=== PATIENT | male | born 1965 | race Caucasian/White ===

== ENCOUNTER 2023-05-13 21:14 | Observation (INO) | payer SELFPAY ==
[2023-05-13 21:14] VITALS: BP 144/80; PULSE 59; RESP 16; TEMP 36.7; O2SAT 98; BMI 20.9
--- NOTE | 2023-05-13 21:38 | XRR_ITS ---
PROCEDURE INFORMATION: Exam: XR Chest Exam date and time: 05/13/2023 9:52 PM Age: 57 years old Clinical indication: Chest pressure; Patient HX: C/O chest pain TECHNIQUE: Imaging protocol: Radiologic exam of the chest. Views: 1 view. COMPARISON: CT neck w con* [id number] 11/26/2018 8:32 AM FINDINGS: Lungs: There is patchy density in the lung bases with the right being greater than the left, this may represent atelectasis versus early infiltrates. Pleural spaces: Unremarkable. No pleural effusion. No pneumothorax. Heart/Mediastinum: Unremarkable. No cardiomegaly. Bones/joints: Patient is status post anterior cervical fusion. Intraperitoneal space: There is no free intraperitoneal air. XR/XR chest 1V portable [id number] IMPRESSION: Bibasal atelectasis versus early infiltrates with the right being more prominent than left.
--- NOTE | 2023-05-13 21:39 | ECG_ITS ---
[facility] Test Date: 2023-05-13 Pat Name: Tung West Department: Room: Gender: Male Reading Aide: : 1965 Requested By: Phil Novak Order Number: [id number] Winsome MD: Chuy Helton M.D. Measurements Intervals [place] Rate: 54 P: 68 MD: 151 QRS: 20 QRSD: 87 T: 56 QT: 431 QTc: 410 Interpretive Statements SINUS BRADYCARDIA MODERATE ST DEPRESSION [0.05+ mV ST DEPRESSION] No previous ECG available for comparison Electronically Signed On 05-14-2023 16:02:40 CDT by Chuy Helton M.D. [id number]
--- NOTE | 2023-05-13 21:39 | ED_ITS ---
HPI - Chest Pain General: Chief Complaint: Chest Pain Stated Complaint: cp Time Seen by Provider: 05/13/23 21:20 History of Present Illness: 57-year-old male presents the emergency department after onset of back pain that then went into his chest that then went into his jaw and then went into his right arm. He subsequently developed shortness of breath nausea and his states he was very pale. He had to lay down on the ground. This occurred about 45 minutes or an hour prior to arrival. He was given aspirin by EMS. He reports it starting to ease up. He admits that he has been having chest discomfort with exertion for the last few months. It is gotten to the point whe re his exertional tolerance is significantly decreased. He also reports a very strong family history of coronary artery disease including in his father who is at the bedside who has had a triple bypass. Patient admits to smoking. He does not know if he has high cholesterol. He does not typically have high blood pressure issues. 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 Patient denies any known coronary artery disease but has not been screened. Currently he still has pain in his back but the chest discomfort has improved. Associated symptoms: Deny abdominal pain, fever(s), syncope or vomiting Review of Systems General: Reports: 10 or more systems reviewed and unremarkable except in HPI and below Const: Denies: fever(s), chills or body aches Eyes: Denies: change in vision ENMT: Denies: throat pain Card: Denies: edema or syncope Resp: Denies: productive cough GI: Denies: abdominal pain, vomiting or diarrhea : Denies: flank pain, dysuria or urinary frequency Musc: Denies: extremity pain or extremity swelling Skin/Breast: Denies: rash or erythema Neuro: Denies: headache(s) or numbness in extremities Physical Exam Const: COMMON NORMALS: no limitations, alert and well nourished EXAM LIMITATIONS: no altered mental status HENMT: COMMON NORMALS: normocephalic, atraumatic and external ears normal HEAD & SCALP: normocephalic and atraumatic EXTERNAL EAR: Yes external ears normal MOUTH: no muffled voice Eye: COMMON NORMALS: EOMs intact bilaterally, conjunctivae normal and no scleral icterus CONJUNCTIVA: Yes conjunctivae normal Neck/C-Spine: COMMON NORMALS: no JVD GENERAL: Yes normal visual inspection and Yes trachea midline Resp: COMMON NORMALS: normal respiratory effort, No use of accessory muscles and clear to auscultation bilaterally AUSCULTATION: clear to auscultation bilaterally Cardio: COMMON NORMALS: no JVD, regular rate and regular rhythm RATE: regular rate RHYTHM: regular rhythm GI: COMMON NORMALS: non-tender PALPATION: No Guarding due to palpation present (GI) Extremity: COMMON NORMALS: normal to inspection Neuro: COMMON NORMALS: moves all extremities, no focal motor deficits and no sensory deficits noted SENSORIUM/ORIENTATION: Yes alert SPEECH: speech normal Psych: COMMON NORMALS: mental status grossly normal, Normal thought process present, cooperative, normal affect and speech normal SPEECH: Yes normal speech THOUGHT PROCESS: Normal thought process present Skin: COMMON NORMALS: no rashes or lesions noted, turgor normal and no jaundice GENERAL SKIN EXAM: no rashes or lesions noted and turgor normal Course Vital Signs: Vital signs: Vital Signs Temperature 98.1 F 05/13/23 21:14 Pulse Rate 60 05/13/23 22:12 Respiratory Rate 16 05/13/23 22:12 Blood Pressure 109/87 05/13/23 22:12 Pulse Oximetry 98 05/13/23 22:12 MDM - Chest Pain Medical Decision Making 57-year-old male smoker with incomplete tetraplegia who presents with an episode of back and chest pain in the setting of exertional dyspnea and chest discomfort increasing over the last several months. ddx: unstable angina or nstemi seem most likely. Low suspicion dissection, pe, gi pathology, msk etiology, gerd/pud, pneumonia, neuropathy. I reviewed the patient's EKG from the prehospital setting. There is J-point depression in the 3, V4, V5. V2 has a lot of artifact but I suspect there is some J-point elevation in V2 as well. No concerning ST segment elevations. EKG from 2138 here shows a sinus bradycardia, rate 54, normal axis, normal intervals, no J-point elevations, isolated mild J-point depression in V4. No hyperacute T waves. No ectopy. Chest x-ray on my interpretation shows a normal cardiomediastinal silhouette, no pneumothorax, no focal consolidations, atalectasis suspected right lower lung, suspected mild emphysematous pattern. I can see the cervical fusion hardware. WBC nl Hgb nl Cr nl Trop baseline normal Lytes nl HEART Score 6 (upper end of moderate risk for MACE) Discussed with Dr Bhatt for admission. Lab Data 05/13/23 20:40 05/13/23 20:40 Radiology Impressions Chest X-Ray 05/13/23 21:38 IMPRESSION: Bibasal atelectasis versus early infiltrates with the right being more prominent than left. Laboratory Results WBC 6.77 10^3/uL (3.29-11.43) 05/13/23 20:40 RBC 4.08 10^6/uL (3.85-5.65) 05/13/23 20:40 Hgb 12.50 g/dL (11.27-16.99) 05/13/23 20:40 Hct 37.7 % (37-53) 05/13/23 20:40 MCV 92.4 fl (82-101) 05/13/23 20:40 MCH 30.6 pg (27-33) 05/13/23 20:40 MCHC 33.2 g/dL (30-55) 05/13/23 20:40 RDW 13.5 % (12.1-15.1) 05/13/23 20:40 Plt Count 241 10^3/cmm (157-399) 05/13/23 20:40 MPV 10.7 fL (7.4-10.4) H 05/13/23 20:40 Neut % (Auto) 49.0 % 05/13/23 20:40 Lymph % (Auto) 39.9 % 05/13/23 20:40 [place] % (Auto) 6.9 % 05/13/23 20:40 Eos % (Auto) 3.4 % 05/13/23 20:40 Baso % (Auto) 0.7 % 05/13/23 20:40 Neut # (Auto) 3.31 10^3/uL (1.8-7.7) 05/13/23 20:40 Lymph # (Auto) 2.7 10^3/uL (0.8-4.8) 05/13/23 20:40 [place] # (Auto) 0.5 10^3/uL (0.2-0.9) 05/13/23 20:40 Eos # (Auto) 0.2 10^3/uL (0.0-0.8) 05/13/23 20:40 Baso # (Auto) 0.1 10^3/uL (0.0-0.1) 05/13/23 20:40 Nucleated RBC % (auto) 0 % 05/13/23 20:40 Nucleated RBCs # 0.0 /100WBC 05/13/23 20:40 PT 13.00 SECONDS (12.1-14.9) 05/13/23 20:40 INR 0.95 (0.8-1.2) 05/13/23 20:40 APTT 32.4 SECONDS (23.9-36.7) 05/13/23 20:40 Sodium 140 mmol/L (136-145) 05/13/23 20:40 Potassium 3.9 mmol/L (3.5-5.1) 05/13/23 20:40 Chloride 104 mmol/L (98-107) 05/13/23 20:40 Carbon Dioxide 27 mmol/L (22-29) 05/13/23 20:40 Anion Gap 12.9 (5-19) 05/13/23 20:40 BUN 21 mg/dL (6-20) H 05/13/23 20:40 Creatinine 1.0 mg/dL (0.7-1.2) 05/13/23 20:40 GFR Calculation 77.3 mL/min (90-130) L 05/13/23 20:40 Glucose 99 mg/dL (65-115) 05/13/23 20:40 Calculated Osmolality 293 mOsm/kg (285-295) 05/13/23 20:40 Calcium 8.9 mg/dL (8.5-10.5) 05/13/23 20:40 Total Bilirubin 0.2 mg/dL (0.15-1.2) 05/13/23 20:40 AST 10 U/L (0-40) 05/13/23 20:40 ALT 7 U/L (0-41) 05/13/23 20:40 Alkaline Phosphatase 97 U/L (40-130) 05/13/23 20:40 Troponin T Baseline 10 ng/L (0-15) 05/13/23 20:40 Total Protein 6.4 g/dL (6.6-8.7) L 05/13/23 20:40 Albumin 3.8 g/dL (3.5-5.2) 05/13/23 20:40 Globulin 2.6 g/dL (1.3-4.6) 05/13/23 20:40 Discharge Plan Discharge Patient Disposition: Placed in Observation Clinical Impression: Unstable angina pectoris, Chest pain Coding Level of Care Code ED Traffic Or System Dispatcher for Trey Cervantes
[2023-05-13] MEDS: nitroglycerin 1 gm/inch oint Pkt 1 INCH TOPICAL (21:43)
[2023-05-13 21:53] LABS: Basophils # 0.1 10^3/uL (0.0-0.1); Basophils % 0.7 %; Eosinophils # 0.2 10^3/uL (0.0-0.8); Eosinophils % 3.4 %; Hematocrit 37.7 % (37-53); Lymphocytes # 2.7 10^3/uL (0.8-4.8); Lymphocytes % 39.9 %; Mean Corpuscular HGB Conc 33.2 g/dL (30-55); Mean Corpuscular Hemoglobin 30.6 pg (27-33); Mean Corpuscular Volume 92.4 fl (82-101); Mean Platelet Volume 10.7 fL (7.4-10.4); Monocytes # 0.5 10^3/uL (0.2-0.9); Monocytes % 6.9 %; Neutrophils # 3.31 10^3/uL (1.8-7.7); Nucleated Red Blood Cells % 0 %; Platelet Count 241 10^3/cmm (157-399); Red Blood Count 4.08 10^6/uL (3.85-5.65); Red Cell Distribution Width 13.5 % (12.1-15.1); White Blood Count 6.77 10^3/uL (3.29-11.43)
[2023-05-13 22:00] LABS: INR 0.95 (0.8-1.2); Partial Thromboplastin Time 32.4 SECONDS (23.9-36.7)
[2023-05-13 22:07] LABS: Alanine Aminotransferase 7 U/L (0-41); Albumin Level 3.8 g/dL (3.5-5.2); Alkaline Phosphatase 97 U/L (40-130); Anion Gap 12.9 (5-19); Aspartate Amino Transferase 10 U/L (0-40); Blood Urea Nitrogen 21 mg/dL (6-20); Calcium 8.9 mg/dL (8.5-10.5); Carbon Dioxide 27 mmol/L (22-29); Chloride 104 mmol/L (98-107); Globulin 2.6 g/dL (1.3-4.6); Glomerular Filtration Rate 77.3 mL/min (90-130); Glucose 99 mg/dL (65-115); Osmolality Calculated 293 mOsm/kg (285-295); Potassium 3.9 mmol/L (3.5-5.1); Sodium 140 mmol/L (136-145); Total Bilirubin 0.2 mg/dL (0.15-1.2); Total Protein 6.4 g/dL (6.6-8.7)
[2023-05-13 22:12] VITALS: BP 109/87; PULSE 60; RESP 16; O2SAT 98
[2023-05-13 22:41] LABS: Troponin(5th) Baseline 10 ng/L (0-15)
[2023-05-13 23:14] LABS: Troponin 5 2HR 68.57 ng/L (0-15)
[2023-05-13 23:19] LABS: Troponin 5 2HR Delta 58.57 ABS# (0-10)
--- NOTE | 2023-05-13 23:21 | PM.HP ---
Providers/Chief Complaint Admitting Physician: Rosalinda Bhatt MD Primary Care Provider: ANTONIO Izquierdo Chief Complaint: cp History of Present Illness Tung West is a 57 year old male with history of incomplete tetraplegia, bladder and bowel dysfunction was brought in by EMS for complaint of chest discomfort 2 hours ago. As per the patient he was working with a mattress when he started feeling chest discomfort, locking of his right-sided jaw and right arm discomfort with associated nausea. He denies any prior symptoms no history of fever cold cough chest pain urinary or bowel complaints. He has a strong family history of CAD. His dad had CABG at the age of 65. He also reported to have occasional shortness of breath recently after walking few steps. He has a history of cervical spine injury 20 years ago leading to incomplete tetraplegia, but he is able to do his daily chores. He walks with a cane and drags his left leg when he gets tired. He admits taking Viagra for erectile dysfunction. He is asymptomatic since arrival in ER. He admits taking 1 dose of Viagra today evening Review of Systems Narrative: As per HPI Vitals/I&O/Wt Last Vital Signs Temp 98.1 F 05/13/23 21:14 Pulse 60 05/13/23 22:12 Resp 16 05/13/23 22:12 BP 109/87 05/13/23 22:12 Pulse Ox 98 05/13/23 22:12 Weight last 48 hrs Weight 58.967 kg Physical Exam Narrative: He is alert awake oriented x3 not in acute distress Chest clear to auscultation bilaterally Cardiovascular normal heart sounds regular rhythm Abdomen NAD Extremities no pedal edema noted Neurologically normal speech no sensory or motor deficits noted Data 05/13/23 20:40 05/13/23 20:40 CXR: Radiologist's impression: IMPRESSION: Bibasal atelectasis versus early infiltrates with the right being more prominent than left. ? EKG 1: My Interpretation: EKG by EMS showed normal sinus rhythm normal axis ,mild ST depressions in leads V3 to V6 EKG in ER showed normal sinus rhythm normal axis with resolved ST depressions. A&P Assessment and plan (1) NSTEMI (non-ST elevated myocardial infarction): 57-year-old male with history of cervical spine injury s/p incomplete tetraplegia presented with complaint of sudden chest discomfort associated with nausea and found to have ST depressions in initial EKG and positive troponins likely due to NSTEMI Plan Admit to CSU Will give aspirin 325 mg p.o. once Atorvastatin 40 mg p.o. once We will start heparin drip as per protocol Follow-up serial troponins Check 2D echo in a.m. Cardiology consult in a.m. Resume home medication except Viagra IV Pepcid 20 mg every 12 hours for stress ulcer prophylaxis Already on heparin, no need for further DVT prophylaxis. Attestations Medical Necessity Statement*: Patient presented with possible NSTEMI with initial EKG changes and positive troponins, needs further cardiac work-up for CAD. He might need admission for more than 2 days Time Spent in Patient Care: 35 minutes Coding Level of Care Code Acute Code for [facility] Fwd Diagnoses NSTEMI (non-ST elevated myocardial infarction) I21.4 Time Spent (min) 30
[2023-05-13] MEDS: clopidogrel 300 mg Tablet PO (23:31)
[2023-05-13] MEDS: aspirin 325 mg Tablet PO (23:32)
[2023-05-13 23:41] VITALS: BP 147/81; BP 164/72; PULSE 57; PULSE 64; RESP 16; TEMP 36.4; TEMP 36.7; O2SAT 97; O2SAT 98
[2023-05-14] VITALS (62 sets, daily range): BP systolic 96–164; BP diastolic 72–88; PULSE 48–73; RESP 11–25; TEMP 36.4–36.9; O2SAT 94–99
[2023-05-14] MEDS: heparin drip 25,000 UNIT/500 ML PREMIX 16.51 UNIT IV (00:12)
[2023-05-14] MEDS: atorvastatin 40 mg Tablet PO ×2 (00:14→20:48)
[2023-05-14] MEDS: famotidine 20 mg/2 mL INJ IVP ×2 (01:04→11:24)
[2023-05-14 02:44] LABS: Basophils % 0.5 %; Eosinophils # 0.2 10^3/uL (0.0-0.8); Eosinophils % 2.3 %; Hematocrit 36.3 % (37-53); Lymphocytes # 2.1 10^3/uL (0.8-4.8); Lymphocytes % 25.7 %; Mean Corpuscular HGB Conc 33.6 g/dL (30-55); Mean Corpuscular Hemoglobin 31.2 pg (27-33); Mean Corpuscular Volume 92.8 fl (82-101); Mean Platelet Volume 10.2 fL (7.4-10.4); Monocytes # 0.3 10^3/uL (0.2-0.9); Monocytes % 3.8 %; Neutrophils # 5.55 10^3/uL (1.8-7.7); Neutrophils % 67.6 %; Nucleated Red Blood Cells % 0 %; Platelet Count 219 10^3/cmm (157-399); Red Blood Count 3.91 10^6/uL (3.85-5.65); Red Cell Distribution Width 13.4 % (12.1-15.1); White Blood Count 8.21 10^3/uL (3.29-11.43)
[2023-05-14 03:01] LABS: Alanine Aminotransferase 7 U/L (0-41); Albumin Level 3.4 g/dL (3.5-5.2); Alkaline Phosphatase 79 U/L (40-130); Anion Gap 10.8 (5-19); Aspartate Amino Transferase 15 U/L (0-40); Blood Urea Nitrogen 18 mg/dL (6-20); Calcium 8.3 mg/dL (8.5-10.5); Carbon Dioxide 25 mmol/L (22-29); Chloride 109 mmol/L (98-107); Globulin 2.6 g/dL (1.3-4.6); Glomerular Filtration Rate 87.3 mL/min (90-130); Glucose 105 mg/dL (65-115); Magnesium 2.1 mg/dL (1.7-2.3); Osmolality Calculated 294 mOsm/kg (285-295); Potassium 3.8 mmol/L (3.5-5.1); Sodium 141 mmol/L (136-145); Total Bilirubin 0.3 mg/dL (0.15-1.2)
[2023-05-14 03:06] LABS: Troponin 5 6HR 449.8 ng/L (0-15); Troponin 5 6HR Delta 439.8 ng/L (0-12)
[2023-05-14 03:13] LABS: NT Pro B Type Natriuretic Pept 453 pg/mL (0-125)
--- NOTE | 2023-05-14 03:32 | PC.NURSE ---
Critical lab 6 hour troponin was called to floor. Dr. Bhatt was notified by WINTER Castellano and orders were received for patient to be transferred to ICU. Report was called to JEANINE Burnett. Patient and were notified and transferred down to ICU via bed with all belongings.
--- NOTE | 2023-05-14 03:38 | ECG_ITS ---
[facility] Test Date: 2023-05-14 Pat Name: Tung West Department: Room: 250 Gender: Male Assisted Living Manager: : 1965 Requested By: Phil Novak Order Number: [id number] Winsome MD: Chuy Helton M.D. Measurements Intervals [place] Rate: 57 P: -13 ND: 151 QRS: 34 QRSD: 86 T: -12 QT: 443 QTc: 432 Interpretive Statements SINUS BRADYCARDIA Compared to ECG 05/13/2023 21:39:56 ST (T wave) deviation no longer present Electronically Signed On 05-14-2023 16:04:12 CDT by Chuy Helton M.D. [id number]
--- NOTE | 2023-05-14 03:44 | PC.NURSE ---
Arrival to ICU: Pt arrived from [place] to ICU 2 @0324. Continuos Cardiac monitoring continued. Pt is A&Ox4, reporting 1/10 chest pain. Educated pt on signs and symptoms to report to the nurse, pt verbalized understanding.
[2023-05-14 06:57] LABS: Partial Thromboplastin Time 48.5 SECONDS (23.9-36.7)
--- NOTE | 2023-05-14 08:12 | USCV_ITS ---
Tung West Age: 57 Gender: M : 1965 Exam Date: 05/14/2023 09:37 Ordering Phys: Nirav De La Garza MD Technologist: Vikas Logan [place] [facility] [place]ication: nstemi BP: 131 / 86 HR: 60 Rhythm: Sinus Technical Quality: Adequate MEASUREMENTS (Male / Female) Normal Values 2D ECHO LV Diastolic Diameter PLAX 4.5 cm 4.2 - 5.9 / 3.9 - 5.3 cm LV Systolic Diameter PLAX 3.2 cm IVS Diastolic Thickness 1.0 cm 0.6 - 1.0 / 0.6 - 0.9 cm IVS Systolic Thickness 1.7 cm LVPW Diastolic Thickness 1.1 cm 0.6 - 1.0 / 0.6 - 0.9 cm LVPW Systolic Thickness 1.4 cm LVOT Diameter 2.1 cm LV Ejection Fraction 2D Teich 55.9 % LA Diameter 3.4 cm LA Width 3.4 cm IVC Diameter 1.7 cm M-MODE Aortic Annulus Diameter 4.0 cm LA Ao Ratio MM 1.0 MV E Point Septal Separation 2.7 cm DOPPLER AV Peak Velocity 116.0 cm/s LVOT Peak Velocity 77.0 cm/s AV Area Cont Eq vti 2.5 cm squared AV Area Cont Eq pk 2.4 cm squared MV Area PHT 3.9 cm squared Mitral E to A Ratio 1.4 MV E' Velocity 41.0 cm/s Mitral E to MV E' Ratio 7.1 Mitral E to LV E' Lateral Ratio 6.5 Mitral E to LV E' Septal Ratio 7.9 TR Peak Velocity 191.0 cm/s TR Peak Gradient 14.6 mmHg TV Peak E Velocity 83.0 cm/s Right Atrial Pressure 3.0 mmHg Pulmonary Artery Systolic Pressu 17.6 mmHg RV Acceleration Time 0.2 s FINDINGS Left Ventricle Left ventricle is normal. LV systolic function is normal with EF of 55-60%. No regional wall motion abnormalities. Right Ventricle Normal in size and function Right Atrium Normal in size Left Atrium Normal in size Mitral Valve Structurally normal mitral valve. Mild to moderate mitral regurgitation. Aortic Valve Structurally normal aortic valve. No significant stenosis or regurgitation. Tricuspid Valve Mild tricuspid regurgitation. Pulmonary artery systolic pressure is normal Pulmonic Valve Not well visualized Pericardium Normal Aorta Normal in size IVC Appears to be normal CONCLUSIONS LV systolic function is normal with EF of 55-60% Mild to moderate mitral regurgitation Mild tricuspid regurgitation No comparison studies are available. Abhay Vu MD (Electronically Signed) Final Date: 14 May 2023 11:57 S
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
[2023-05-14] MEDS: aspirin 81 mg EC Tablet PO (09:57)
[2023-05-14] MEDS: sodium chloride 0.9% 1,000 ML 50 ML IV (11:24)
--- NOTE | 2023-05-14 15:00 | XACV_ITS ---
Exam Room: [facility] Ht: 168 cm Wt: 59 kg BSA: 1.66 m2 Gender: Male : 1965 Any Known Allergies: Other Exam Priority: Routine Procedure(s): Procedure Description: Diagnostic procedure Procedure Description: Left Heart Catheterization Procedure Description: Left ventriculography Procedure Description: Coronary Angiography Danie JEFFREY; Diagnostic Cath Status: Urgent Diagnostic Findings * Patient arrived with chest pain, jaw pain, shortness of breath, diaphoresis with elevated troponin. Angiography recommended. Performed from the right radial artery. * Angiography reveals right coronary artery dominance. The left main coronary artery is normal bifurcates into the left anterior descending and circumflex. Circumflex provides some collateral flow to the distal right coronary artery as does the septal branch of the LAD. The circumflex is a relatively large vessel and there are 2 marginal branches. The first is a large marginal branch with a 30 to 40% stenosis in the proximal portion. Otherwise the vessel has diffuse luminal irregularities. There is a large left atrial recurrent branch. The left anterior descending contains mild diffuse luminal irregularities in the proximal to midportion. Otherwise the vessel is relatively free of disease. There is a tiny ramus intermedius artery. The right coronary artery is essentially occluded just past the acute margin. There are some bridging collaterals which fill the distal vessel to some degree.. PCI Status: Elective PCI LVEF Assessed: Yes Interventional Findings * Because the artery is so large I decided to see if I could place a wire. Guide positioning was very difficult. Once advancing the wire and then putting a balloon over the wire it became clear very quickly that this is a chronic total occlusion which is lengthy. I could not pass the wire through the vessel so I stopped. There is adequate collateral flow. Decision for PCI with Surgical Consult: No PCI for Multi-vessel Disease: No Conclusions 1. Minor disease of the LAD and circumflex with normal left main. Occluded distal right coronary artery with good collateral flow from the left system. Recommendations * Aspirin and antianginals. The patient has a spinal cord injury and so uses Viagra regularly. He would like to avoid the use of the long-acting nitrate.. Therefore, I started him on Ranexa to see if we can achieve an antianginal effect. If that does not work I would switch over to a dihydropyridine calcium channel razia before committing him to a long-acting nitrate. Interventional RX Recommendation: medical therapy and/or counseling Diagnostic RX Recommendation: medical therapy and/or counseling Anticoagulation: Heparin Ventriculography Ejection Fraction: 60.0 % Pressures Phase:Rest AO : 130 / 75 ( 96 ) @ 3:33:00 PM 110 / 78 ( 94 ) @ 3:35:00 PM 151 / 82 ( 109 ) @ 3:43:00 PM 151 / 82 ( 109 ) @ 3:43:00 PM 129 / 85 ( 105 ) @ 4:00:00 PM LV : 163 / 5 / 26 @ 3:39:00 PM 158 / 6 / 26 @ 3:40:00 PM 162 / 6 / 26 @ 3:43:00 PM Valves Phase:DefaultPhase AV : 12.0 @ 3:12:03 PM AV Mean Gradient: 12.0 @ 3:12:03 PM 12.0 @ 3:12:03 PM Clinical Evaluation EBL: 5mL-10mL Procedural Details Procedure Consent Obtained. Current Diagnosis : NSTEMI. Pre-Procedure Time Out. Identified patient by full name and date of as verbalized by the patient/guarantor. Does the consent match the physician's order: Yes. Accurate & Complete Informed Consent: Yes. Inpatient/Outpatient History & Physical on Chart: Yes. If H&P is completed, is and addenduem needed: No; If yes, is the addendum complete: N/A. Visualize and Verify Site with Patient/Guarantor: N/A. Relevant Radiology Images available: Yes. Pre-op teaching completed and patient verbalized understanding. The risks, benefits, and alternatives of sedation and/or procedure were discussed by physician. The patient agrees to continue. Procedure started. [facility] Clinical Fraility Score: 3: Managing Well. Gis Specialist Indications: ACS > 24 hours. Chest Pain Symptom Assessment: Typical Angina Symptoms. Correct patient, site and procedure confirmed by cath team. Current diagnosis: NSTEMI. PERRLA. Strong, equal hand editor school photograph bilaterally. Lungs clear x 5 lobes. IV Site on Arrival: 18 gauge in the right forearm. IV Fluids: 0.9% NaCl at KVO. 100 mL infused prior to quality assurance/r&d lab technician. Oxygen started at 2liters/min via nasal canula. right groin was prepped with chloroprep then draped in the usual sterile fashion. right radial was prepped with chloroprep then draped in the usual sterile fashion. IV Site on Arrival: 18 gauge in the left anticubital. Pre Procedural Pulses: bilateral radial was 3+. Physician notified. Baseline sample Acquired. HR: 46 BPM. Physician arrived. Physician scrubbed in. Immediate Pre-Procedure Time Out. Correct Patient: Yes; Correct Procedure: Yes; Correct Site: Yes; Correct Patient Position: Yes; Correct Supplies: Yes; Dried Flammable Prep: Yes; Blood Products Available: N/A;. Lidocaine 1% infiltrated to the right radial. Arterial access obtained. A 5 latvian Khanh catheter in over wire. Multiple views taken of right coronary artery. Catheter redirected to the LCA. Multiple views taken of left coronary artery. Catheter removed over the exchange wire. A 5 latvian Angled Pig catheter in over wire. EDP Sample taken: LV 163/5,26; HR: 55 BPM; SpO2: 98%. LV gram performed in LITTLE @ 10 mL/second for a total of 30 mL. EDP Sample taken: LV 158/6,26; HR: 61 BPM; SpO2: 99%. Physician review of cine films. Pullback taken: LV 162/6,26; AO 151/82(109); Mean: 12mmHg, Peak to Peak: 12mmHg, SEP: 19sec/min; HR: 50 BPM; SpO2: 99%. Catheter removed over the exchange wire. Sheath upsized to a 6 Fr. 6 latvian JR 4 guide catheter was inserted over the wire. Guide catheter out. 6 latvian AL I guide catheter was inserted over the wire. Guide catheter out. 6 latvian AR 1 guide catheter was inserted over the wire. [place] guidewire was advanced through the guide catheter to lesion in the mid RCA. 2.5x30 Trek balloon inserted to lesion in the distal RCA. Balloon and wire out. Guide catheter out. A TR Band was successful obtaining hemostatsis at the Right Radial artery insertion site. Post Procedure: Pulses reassessed and unchanged. PERRLA. Strong, equal hand editor school photograph bilaterally. No VTE prophylaxis required. Medication's Wasted: Lidocaine 1% = 3 mL. Medication's Wasted: Nitro = 49.8 mcg. Medication's Wasted: Heparin = 1000 units. Medication's Wasted: Other = Fentanyl 25mcg Versed 1 mg. Total IV fluids: 73 mL. Complications: None. Estimated blood loss: 5mL-10mL. Responsiveness - Normal response to verbal stimuli; alert and oriented, PERRLA. Circulation: W/N/L, pulses unchanged. Nausea/Vomiting: No. Procedure completed. Vital chart was stopped. Patient transferred by bed to ICU. Access Site Site: Right Radial artery Sheath Size: 5 Fr Hemostasis Method: TR Band Hemostasis Success: Successful Procedure Medications Start: 2:22 PM Stop: 2:22 PM Medication: Versed Amount: 1 mg Route: I.V. Start: 2:22 PM Stop: 2:22 PM Medication: Fentanyl Amount: 50 mcg Route: I.V. Start: 2:29 PM Stop: 2:29 PM Medication: Nitrogylcerin Amount: 200 mcg Route: I.A. Start: 2:34 PM Stop: 2:34 PM Medication: Versed Amount: 1 mg Route: I.V. Start: 2:48 PM Stop: 2:48 PM Medication: Versed Amount: 1 mg Route: I.V. Start: 2:48 PM Stop: 2:48 PM Medication: Fentanyl Amount: 25 mcg Route: I.V. I, the attending physician, have reviewed and verified all procedure medications. Yes, all medications given per verbal order History/Risk Factors Hypertension: No Dyslipidemia: No Peripheral Arterial Disease (PAD): No Myocardial Infarction ([place]): No Obesity: No Renal Disease: No Tobacco Use: Current/Recent(w/in 1 year) Prior Interventions PCI: No CABG: No Valve Surgery: No Report Signatures Finalized by Dr. Chuy Helton MD on 05/14/2023 03:37 PM
--- NOTE | 2023-05-14 15:33 | PM.PN ---
Subjective Subjective: Patient was seen this morning, he does report smoking, does have a family history of CAD in his father, currently denies any chest pain, no prior history of chest pain Vitals/I&O/Wt Last Vital Signs Temp 98.2 F 05/14/23 08:15 Pulse 61 05/14/23 13:45 Resp 15 05/14/23 13:45 BP 127/79 05/14/23 14:00 Pulse Ox 96 05/14/23 13:45 O2 Del Method Room Air 05/14/23 08:15 05/14/23 05/14/23 05/14/23 06:59 14:59 22:59 Intake Total 56.134 / 56.134 176.067 / 176.067 Output Total 100 / 100 Balance -43.866 / -43.866 176.067 / 176.067 Weight last 48 hrs Weight 59.375 kg Weight 58.967 kg Physical Exam Const: COMMON NORMALS: no acute distress and patient oriented x3 Resp: COMMON NORMALS: normal respiratory effort, No retractions, No use of accessory muscles and clear to auscultation bilaterally AUSCULTATION: clear to auscultation bilaterally Cardio: COMMON NORMALS: regular rate, regular rhythm, S1 normal heart sound present and S2 normal heart sound present RATE: regular rate RHYTHM: regular rhythm HEART SOUNDS: S1 normal heart sound present and S2 normal heart sound present GI: COMMON NORMALS: Normal to inspection, nondistended, normoactive bowel sounds present and non-tender Extremity: COMMON NORMALS: no pedal edema Neuro: COMMON NORMALS: patient oriented x3 Psych: COMMON NORMALS: mental status grossly normal Data 05/14/23 02:34 05/14/23 02:34 A&P Assessment and plan (1) NSTEMI (non-ST elevated myocardial infarction): 57-year-old male with history of cervical spine injury s/p incomplete tetraplegia presented with complaint of sudden chest discomfort associated with nausea and found to have ST depressions in initial EKG and positive troponins likely due to NSTEMI (2) Chest pain: (3) Smoker: Smoking cessation counseling Plan Currently in ICU, CSU overflow Aspirin 81 mg once daily Atorvastatin 40 mg once daily Continue heparin drip 6-hour troponin 449.8, delta of 439 Cardiac echo CONCLUSIONS ?LV systolic function is normal with EF of 55-60% ?Mild to moderate mitral regurgitation ?Mild tricuspid regurgitation ?No comparison studies are available. Cardiology consulted Resume home medication except Viagra IV Pepcid 20 mg every 12 hours for stress ulcer prophylaxis Already on heparin, no need for further DVT prophylaxis. Attestations Medical Necessity Statement*: Patient requires hospitalization for chest pain, NSTEMI, Diagnoses NSTEMI (non-ST elevated myocardial infarction) I21.4 Chest pain R07.9 Smoker F17.200
[2023-05-14] MEDS: baclofen 10 mg Tablet PO (17:15)
[2023-05-14] MEDS: ranolazine (12HR) 500 mg Tablet PO (17:15)
[2023-05-14] MEDS: sodium chloride 0.9% 1,000 ML 100 ML IV (17:16)
--- NOTE | 2023-05-14 18:54 | PC.NURSE ---
Transfer Note Patient transferred to CSU 103 from ICU via wheelchair. Handoff report given to JEANINE Torres. Patient oriented to environment and equipment. Covering service notified. Orders reviewed and will continue to monitor. Family notified. Upon transfer patient is alert/oriented x4 on room air. IVF infusing per order please see MAR for infusion rate. All belongings transferred with patient and placed at bedside.
[2023-05-15] MEDS: famotidine 20 mg/2 mL INJ IVP (00:50)
[2023-05-15] MEDS: sodium chloride 0.9% 1,000 ML 100 ML IV (03:24)
[2023-05-15 03:48] LABS: Basophils % 0.6 %; Eosinophils # 0.2 10^3/uL (0.0-0.8); Eosinophils % 2.5 %; Hematocrit 37.5 % (37-53); Lymphocytes # 2.1 10^3/uL (0.8-4.8); Lymphocytes % 28.2 %; Mean Corpuscular HGB Conc 32.5 g/dL (30-55); Mean Corpuscular Hemoglobin 30.4 pg (27-33); Mean Corpuscular Volume 93.5 fl (82-101); Mean Platelet Volume 10.4 fL (7.4-10.4); Monocytes # 0.5 10^3/uL (0.2-0.9); Monocytes % 6.3 %; Neutrophils # 4.52 10^3/uL (1.8-7.7); Neutrophils % 62.3 %; Nucleated Red Blood Cells % 0 %; Platelet Count 209 10^3/cmm (157-399); Red Blood Count 4.01 10^6/uL (3.85-5.65); Red Cell Distribution Width 13.5 % (12.1-15.1); White Blood Count 7.26 10^3/uL (3.29-11.43)
[2023-05-15 03:59] VITALS: BP 119/72; PULSE 57; RESP 16; TEMP 36.6; O2SAT 95
[2023-05-15 04:08] LABS: Anion Gap 10.1 (5-19); Blood Urea Nitrogen 14 mg/dL (6-20); Calcium 8.3 mg/dL (8.5-10.5); Carbon Dioxide 26 mmol/L (22-29); Chloride 110 mmol/L (98-107); Glomerular Filtration Rate 87.3 mL/min (90-130); Glucose 97 mg/dL (65-115); Osmolality Calculated 294 mOsm/kg (285-295); Potassium 4.1 mmol/L (3.5-5.1); Sodium 142 mmol/L (136-145)
[2023-05-15 05:22] VITALS: PULSE 47
[2023-05-15 07:31] VITALS: BP 145/84; PULSE 53; RESP 16; TEMP 36.9; O2SAT 97
[2023-05-15] MEDS: aspirin 81 mg EC Tablet PO (08:33)
[2023-05-15] MEDS: ranolazine (12HR) 500 mg Tablet PO (08:33)
[2023-05-15] MEDS: baclofen 10 mg Tablet PO (08:33)
--- NOTE | 2023-05-15 09:39 | P.PN_ITS ---
Subjective Subjective: Tung had coronary angiography yesterday. The distal right coronary artery is a chronic total occlusion with good collateral flow from the left system. There were no other significant lesions, thus he did not require any intervention. Initially, I had considered using long-acting nitrate for control of his angina, however after talking to his uses Viagra to help with his bowel and bladder control among other things. After considering the options I think it is best not to add long-acting nitrate but to consider Ranexa for angina control so that he can still use the Viagra for his other needs. Vitals/I&O/Wt Last Vital Signs Temp 98.5 F 05/15/23 07:31 Pulse 53 L 05/15/23 07:31 Resp 16 05/15/23 07:31 BP 145/84 05/15/23 07:31 Pulse Ox 97 05/15/23 07:31 O2 Del Method Room Air 05/15/23 07:31 05/14/23 05/15/23 05/15/23 22:59 06:59 14:59 Intake Total 1440 / 7231.050 9293 / 2816.067 480 / 480 Output Total 920 / 920 600 / 600 Balance 1440 / 1616.067 280 / 1896.067 -120 / -120 Weight last 48 hrs Weight 130 lb 14.4 oz Weight 130 lb Physical Exam Narrative: GENERAL: In general he looks and feels well HEENT: Exam within normal limits. NECK: Supple without jugular vein distention. The carotid upstroke is normal without bruits. BACK: Exam normal. LUNGS: Clear. HEART: Regular rate and rhythm. ABDOMEN: Benign without organomegaly or tenderness. EXTREMITIES: No edema. Right radial artery site is flat, dry without bleeding or hematoma. NEUROLOGIC: Exam normal. SKIN: Unremarkable. Data 05/15/23 03:20 05/15/23 03:20 A&P Assessment and plan (1) Smoker: (2) Chest pain: (3) Elevated troponin: Plan He may be discharged today. I would continue his home medications and add low- dose aspirin p.o. Ranexa 500 mg twice a day. No beta-razia secondary to bradycardia. Follow-up in 7 to 10 days with the nurse practitioner in one of the dross skimmer in about 3 months. Attestations Medical Necessity Statement*: Should be able to go home today. and Moderate Time for a total of 30 minutes, includes reviewing past or interval history, examining/interviewing patient, counseling patient/family/other support, updating patient/family/other support, discussing plan of care with staff, communicating with other healthcare providers and documenting encounter Diagnoses Smoker F17.200 Chest pain R07.9 Elevated troponin R77.8
[2023-05-15] MEDS: enoxaparin 40 mg/0.4 mL Syringe SUBCUT (09:51)
--- NOTE | 2023-05-15 10:44 | PM.DCS ---
Discharge Providers Date of Admission: 05/13/23 23:03 Date of Discharge: May 15, 2023 Attending Provider at Admission: Rosalinda Bhatt MD Attending Provider at Discharge: Nirav De La Garza MD Primary Care Provider: ANTONIO Izquierdo Diagnoses at Discharge Discharge Diagnosis (1) Smoker: Status: Acute (2) Chest pain: Status: Acute (3) Elevated troponin: Status: Acute Reason for Visit Reason for Visit: cp Hospital Course Hospital Course Tung West is a 57 year old male with history of incomplete tetraplegia, bladder and bowel dysfunction was brought in by EMS for complaint of chest discomfort 2 hours ago.? As per the patient he was working with a mattress when he started feeling chest discomfort, locking of his right-sided jaw and right arm discomfort with associated nausea.? He denies any prior symptoms no history of fever cold cough chest pain urinary or bowel complaints.? He has a strong family history of CAD.? His dad had CABG at the age of 65. He also reported to have occasional shortness of breath recently after walking few steps. He has a history of cervical spine injury 20 years ago leading to incomplete tetraplegia, but he is able to do his daily chores.? He walks with a cane and drags his left leg when he gets tired.? He admits taking Viagra for erectile dysfunction. He is asymptomatic since arrival in ER.? He admits taking 1 dose of Viagra today evening Patient was admitted to [facility] for chest pain, NSTEMI, with positive delta troponins, cardiology was consulted, echo showed EF of 55 to 60%, underwent coronary angiography with findings as below Conclusions ? 1. Minor disease of the LAD and circumflex with normal left main.? Occluded distal right coronary artery with good collateral flow from the left system. Recommendations ? * Aspirin and antianginals.? The patient has a spinal cord injury and so uses Viagra regularly.? He would like to avoid the use of the long-acting nitrate.. Therefore, I started him on Ranexa to see if we can achieve an antianginal effect.? If that does not work I would switch over to a dihydropyridine calcium channel razia before committing him to a long-acting nitrate. -Monitored as inpatient, no recurrent chest pain, will discharge home on aspirin, statin, Ranexa, with a close follow-up with cardiology as outpatient, if patient were to have any recurrent chest pain to come to the emergency room. Patient was advised to not use nitroglycerin with Viagra due to risk of life-threatening side effect. In terms of his smoking, I had extensive discussion with him about smoking cessation counseling, morbidity and mortality associate with further smoking, and his CAD, his risk of lung disease, risk of strokes, risk of cancers, he voiced understanding, all questions answered, agreed to quit Physical Exam Const: COMMON NORMALS: no acute distress and patient oriented x3 Resp: COMMON NORMALS: normal respiratory effort, No retractions, No use of accessory muscles and clear to auscultation bilaterally AUSCULTATION: clear to auscultation bilaterally Cardio: COMMON NORMALS: regular rate, regular rhythm, S1 normal heart sound present and S2 normal heart sound present RATE: regular rate RHYTHM: regular rhythm HEART SOUNDS: S1 normal heart sound present and S2 normal heart sound present GI: COMMON NORMALS: Normal to inspection, nondistended, normoactive bowel sounds present and non-tender Extremity: COMMON NORMALS: no pedal edema Neuro: COMMON NORMALS: patient oriented x3 Psych: COMMON NORMALS: mental status grossly normal Discharge Data Studies Completed and Pending Completed Studies During Hospitalization Category Date Time Status VEGETABLE COOK request for service Routine Exams 05/14/23 15:00 Completed XR chest 1V portable [id number] Stat Exams 05/13/23 21:38 Completed CV. echo complete* [id number] Routine Ultrasound 05/14/23 08:12 Completed Pending at discharge Category Date Time Status CA echo doppler complete Routine Exams 05/14/23 04:58 Stop Req Basic Metabolic Panel AM LABS Lab 05/16/23 04:00 Ordered Basic Metabolic Panel AM LABS Lab 05/17/23 04:00 Ordered Complete Blood Count w/Auto AM LABS Lab 05/16/23 04:00 Ordered Complete Blood Count w/Auto AM LABS Lab 05/17/23 04:00 Ordered Radiology Impressions Chest X-Ray 05/13/23 21:38 IMPRESSION: Bibasal atelectasis versus early infiltrates with the right being more prominent than left. Laboratory Results WBC 7.26 10^3/uL (3.29-11.43) 05/15/23 03:20 RBC 4.01 10^6/uL (3.85-5.65) 05/15/23 03:20 Hgb 12.20 g/dL (11.27-16.99) 05/15/23 03:20 Hct 37.5 % (37-53) 05/15/23 03:20 MCV 93.5 fl (82-101) 05/15/23 03:20 MCH 30.4 pg (27-33) 05/15/23 03:20 MCHC 32.5 g/dL (30-55) 05/15/23 03:20 RDW 13.5 % (12.1-15.1) 05/15/23 03:20 Plt Count 209 10^3/cmm (157-399) 05/15/23 03:20 MPV 10.4 fL (7.4-10.4) 05/15/23 03:20 Neut % (Auto) 62.3 % 05/15/23 03:20 Lymph % (Auto) 28.2 % 05/15/23 03:20 Gila % (Auto) 6.3 % 05/15/23 03:20 Eos % (Auto) 2.5 % 05/15/23 03:20 Baso % (Auto) 0.6 % 05/15/23 03:20 Neut # (Auto) 4.52 10^3/uL (1.8-7.7) 05/15/23 03:20 Lymph # (Auto) 2.1 10^3/uL (0.8-4.8) 05/15/23 03:20 Gila # (Auto) 0.5 10^3/uL (0.2-0.9) 05/15/23 03:20 Eos # (Auto) 0.2 10^3/uL (0.0-0.8) 05/15/23 03:20 Baso # (Auto) 0.0 10^3/uL (0.0-0.1) 05/15/23 03:20 Nucleated RBC % (auto) 0 % 05/15/23 03:20 Nucleated RBCs # 0.0 /100WBC 05/15/23 03:20 PT 13.00 SECONDS (12.1-14.9) 05/13/23 20:40 INR 0.95 (0.8-1.2) 05/13/23 20:40 APTT 48.5 SECONDS (23.9-36.7) H 05/14/23 06:12 Sodium 142 mmol/L (136-145) 05/15/23 03:20 Potassium 4.1 mmol/L (3.5-5.1) 05/15/23 03:20 Chloride 110 mmol/L (98-107) H 05/15/23 03:20 Carbon Dioxide 26 mmol/L (22-29) 05/15/23 03:20 Anion Gap 10.1 (5-19) 05/15/23 03:20 BUN 14 mg/dL (6-20) 05/15/23 03:20 Creatinine 0.9 mg/dL (0.7-1.2) 05/15/23 03:20 GFR Calculation 87.3 mL/min (90-130) L 05/15/23 03:20 Glucose 97 mg/dL (65-115) 05/15/23 03:20 Calculated Osmolality 294 mOsm/kg (285-295) 05/15/23 03:20 Calcium 8.3 mg/dL (8.5-10.5) L 05/15/23 03:20 Magnesium 2.1 mg/dL (1.7-2.3) 05/14/23 02:34 Total Bilirubin 0.3 mg/dL (0.15-1.2) 05/14/23 02:34 AST 15 U/L (0-40) 05/14/23 02:34 ALT 7 U/L (0-41) 05/14/23 02:34 Alkaline Phosphatase 79 U/L (40-130) 05/14/23 02:34 Troponin T Baseline 10 ng/L (0-15) 05/13/23 20:40 Troponin T 120 Minute 68.57 ng/L (0-15) H 05/13/23 22:42 Delta Troponin T 58.57 ABS# (0-10) H* 05/13/23 22:42 Troponin T Hi Sens 6Hr 449.8 ng/L (0-15) H 05/14/23 02:34 Troponin T Hi Sens 6Hr Delta 439.8 ng/L (0-12) H* 05/14/23 02:34 NT-Pro-B Natriuret Pep 453 pg/mL (0-125) H 05/14/23 02:34 Total Protein 6.0 g/dL (6.6-8.7) L 05/14/23 02:34 Albumin 3.4 g/dL (3.5-5.2) L 05/14/23 02:34 Globulin 2.6 g/dL (1.3-4.6) 05/14/23 02:34 Vitals Last Vital Signs Temp 98.5 F 05/15/23 07:31 Pulse 53 L 05/15/23 07:31 Resp 16 05/15/23 07:31 BP 145/84 05/15/23 07:31 Pulse Ox 97 05/15/23 07:31 O2 Del Method Room Air 05/15/23 07:31 Discharge Plan Discharge Patient Disposition: Home Condition: Stable Prescriptions: New atorvastatin 40 mg Tablet 40 mg PO BEDTIME 30 Days Qty: 30 0RF aspirin 81 mg Tablet,Delayed Release (Dr/Ec) 81 mg PO DAILY 30 Days Qty: 30 0RF ranolazine 500 mg Tablet Extended Release 12 Hr 500 mg PO BID 30 Days Qty: 60 0RF Continued baclofen 10 mg tablet 10 mg PO TID PRN (Reason: spams) Prilosec OTC 20 mg Tablet,Delayed Release (Dr/Ec) 20 mg PO DAILY Viagra 100 mg Tablet 100 mg PO DAILY PRN (Reason: ED/ bowel movements) Rx Instructions: administer 30 minutes to 4 hours before activity Discontinued ibuprofen 600 mg Tablet 600 mg PO BID PRN (Reason: Pain) Discharge Orders: Discharge Order (Routine); Ordered 05/15/23 Ordered By: Nirav De La Garza Referrals: Areli Farah FNP [Nurse Practitioner] - 05/29/23 3:15 am Brittney Edwards FNP [Primary Care Provider] - 05/21/23 10:20 am Discharge Diet: Cardiac Discharge Activity: Resume usual activity Patient Instructions: How to Stop Smoking (DC), Cigarette Smoking and Your Health (GEN), Opioid Safety, Quitting Smoking Activity Restrictions/Additional Instructions: - Please stop smoking -Please take aspirin, statin as prescribed -If you have recurrent chest pain please go to the emergency room Discharge Attestations Time Spent in Discharge Care*: greater than 30 min Time Spent in Smoking Cessation: more than 10 minutes Quality Metrics Clinical Quality Measures [ No reported AMI, CVA or VTE this stay] Coding Level of Care Code 96363 Total time (in minutes) for Discharge: 50 Diagnoses Smoker F17.200 Chest pain R07.9 Elevated troponin R77.8
[2023-05-15 11:34] VITALS: BP 143/90
[2023-05-15 11:36] VITALS: BP 143/90
--- NOTE | 2023-05-15 12:31 | PC.NURSE ---
Discharge Note Patient discharged to home via POV accompanied by spouse. Discharge instructions reviewed with patient and/or appeals representative. Mobile pharmacy medications and/or prescriptions provided. Belongings/home medications returned.
== END 2023-05-15 12:31 | disposition home or self-care (01) ==
LOC: ER 22:04 → MEDSURG 23:03 → ICU 05-14 03:25 → CSU 05-14 18:48
PROVIDERS: Internal Medicine Cardiovascular Disease; Admitting Provider Internal Medicine; Emergency Provider Emergency Medicine; PCP Registered Nurse; Visit Provider Family Medicine
DX: R07.89 Other chest pain (principal); F17.210 Nicotine dependence, cigarettes, uncomplicated; Z82.49 Family history of ischemic heart disease and other diseases of the circulatory system; I65.21 Occlusion and stenosis of right carotid artery; R77.8 Other specified abnormalities of plasma proteins; G82.50 Quadriplegia, unspecified; R00.1 Bradycardia, unspecified
CPT/HCPCS: 36415; 71045; 80048; 80053; 83735; 83880; 84484; 85025; 85610; 85730; 93005; 93306; 93458; 96361; 96365; 96372; 96374; 96375; 96376; 99152; 99153; 99285; C1725; C1769; C1887; C1894; G0378; J0461; J1644; J1650; J2250; J3010; J3490; J7030; Q9967

== ENCOUNTER 2023-09-13 09:55 | Outpatient (CLI) | payer SELFPAY ==
--- NOTE | 2023-09-13 10:04 | US_ITS ---
WS: [id number] ULTRASOUND SOFT TISSUES RIGHT cervical chain HISTORY: ENLARGED LYMPH NODE IN NECK COMPARISON: None available. TECHNIQUE: 2-D and color Doppler imaging is submitted. Abnormal complex cystic mass within the RIGHT cervical chain. This corresponds to the palpable area a s directed by the patient There is a cystic mass with septations and a soft tissue component measuring 2.3 x 2.9 x 1.3 cm. Ther e is increased vascularity with subtle solid component. This is probably a cluster of abnormal lymph nodes. IMPRESSION: 1. Abnormal soft tissue mass with cystic and solid component in the RIGHT cervical chain corresponds to the palpable abnormality. Mass measures 2.3 x 2.9 x 1.3 cm. This may be a cluster of abnormal lym ph nodes. Necrotic versus neoplastic. This needs to be further evaluated. Recommend follow-up neck CT with IV contrast.
== END 2023-09-13 09:56 | disposition home or self-care (01) ==
LOC: RAD 09:56
PROVIDERS: PCP Registered Nurse; Visit Provider Registered Nurse
DX: R59.9 Enlarged lymph nodes, unspecified (principal)
CPT/HCPCS: 76536

== ENCOUNTER 2023-11-23 13:05 | Outpatient (CLI) | payer SELFPAY ==
--- NOTE | 2023-11-23 13:11 | CTR_ITS ---
PROCEDURE INFORMATION: Exam: CT Neck With Contrast Exam date and time: 11/23/2023 1:35 PM Age: 58 years old Clinical indication: Mass, lump, or swelling in neck; Right; Prior surgery; Surgery date: 6+ months; Surgery type: C4-5; Additional info: Mass of R side of neck TECHNIQUE: Imaging protocol: Computed tomography of the neck with contrast. Radiation optimization: All CT scans at this facility use at least one of these dose optimization techniques: automated exposure control; mA and/or kV adjustment per patient size (includes targeted exams where dose is matched to clinical indication); or iterative reconstruction. Contrast material: OMNIPAQUE 350; Contrast volume: 80 ml; Contrast route: INTRAVENOUS (IV); COMPARISON: Ultrasound dated 09/13/2023. RADIATION DOSE METRICS: Total DLP (mGy-cm): 245.71 FINDINGS: Oral cavity: Unremarkable. Pharynx: Nonspecific bilateral lateral wall thickening of the oropharynx. Recommend correlation with direct visualization. Larynx: Unremarkable. Epiglottis is normal. Prevertebral and retropharyngeal spaces: Unremarkable. Salivary glands: Normal. Glands are normal in size. Thyroid: No enlarged or calcified nodules. Lymph nodes: Prominent right jugulodigastric solid and cystic lymph node measuring up to 3.7 x 2.2 x 3.1 cm demonstrating heterogeneous enhancement and septated cystic areas raising concern for a malignant lymph node. Trachea: Visualized upper trachea is unremarkable. Lungs: Emphysematous changes are noted at both lung apices. Bones/joints: Posterior spinal fixation from C5 through C7. Soft tissues: Calcified plaque is seen involving the bilateral carotid bulbs. CT/CT neck w con* [id number] IMPRESSION: 1. Enlarged right jugulodigastric solid and cystic lymph node concerning for a malignant lymph node. This was noted on prior ultrasound. Recommend clinical correlation and recommend surgical consultation. Consider surgical biopsy or percutaneous fine needle aspiration. PET CT may also be of value. 2. The lateral alba of the oropharynx appear irregular and thickened. Underlying malignancy cannot be excluded. Recommend correlation with direct visualization. 3. THIS REPORT CONTAINS FINDINGS THAT MAY BE CRITICAL TO PATIENT CARE. The findings were verbally communicated via telephone conference with Dr. Skye Sims at 4:14 PM CDT on 11/23/2023. The findings were acknowledged and understood.
[2023-11-23] MEDS: iohexol 350 mg/mL 500 mL Btl (per mL) IV (13:48)
== END 2023-11-23 13:06 | disposition home or self-care (01) ==
LOC: RAD 13:07
PROVIDERS: PCP Registered Nurse; Visit Provider Registered Nurse
DX: R59.9 Enlarged lymph nodes, unspecified (principal)
CPT/HCPCS: 70491; Q9967